=== PATIENT | male | born 1955 | race Caucasian/White ===

== ENCOUNTER 2019-03-10 00:38 | Emergency (ER) | payer OTHER ==
[~2019-03-10] VITALS: Ht 182.9 cm; Wt 102.1 kg
[~2019-03-10 00:38] MED LIST: LISINOPRIL10 MG PO; NAPROSYN375 MG PO; NOHOMEMEDICATIONS; NORCO 5-325 TA1 EACH PO; VICODIN 5-5001 EACH PO
[2019-03-10 01:17] LABS: ABSOLUTE BASOPHILS 0.1 thou/uL (0.0-0.2); ABSOLUTE EOSINOPHILS 0.4 thou/uL (0.0-0.7); ABSOLUTE LYMPHOCYTES 3.1 thou/uL (0.8-5.3); ABSOLUTE MONOCYTES 0.9 thou/uL (0.0-1.2); ABSOLUTE NEUTROPHILS 10.5 thou/uL (1.6-8.1); BASOPHILS 0.8 %; EOSINOPHILS 2.4 %; HEMATOCRIT 45.9 % (42.0-52.0); HEMOGLOBIN 15.8 gm/dL (14.0-18.0); MCH 34.7 pg (26.0-34.0); MCHC 34.4 g/dL (28.0-37.0); MCV 100.6 fL (80.0-100.0); MONOCYTES 5.9 %; MPV 8.8 fl. (7.2-11.1); NUCLEATED RBCS 0 /100WBC; PLATELET COUNT* 256 thou/uL (150-400); POLYS 69.9 %; RBC 4.56 mil/uL (4.50-6.00); RDW-CV 13.2 % (10.5-14.5)
[2019-03-10 01:25] LABS: CALCIUM 8.9 mg/dL (8.5-10.1); CREATININE 1.3 mg/dL (0.6-1.3); POTASSIUM 3.2 mmol/L (3.5-5.1)
[2019-03-10 01:29] LABS: ALBUMIN 3.8 g/dL (3.4-5.0); TOTAL BILIRUBIN 0.2 mg/dL (<0.1-1.0); TOTAL PROTEIN 7.8 g/dL (6.4-8.2)
[2019-03-10 02:19] LABS: URINE BILIRUBIN NEGATIVE (Negative); URINE BLOOD NEGATIVE (Negative); URINE CLARITY CLEAR; URINE COLOR YELLOW; URINE GLUCOSE-RANDOM NEGATIVE (Negative); URINE KETONES NEGATIVE (Negative); URINE LEUKOCYTES-REFLEX NEGATIVE (Negative); URINE NITRITE-REFLEX NEGATIVE (Negative); URINE PROTEIN NEGATIVE (Negative); URINE SPECIFIC GRAVITY >= 1.030 (1.005-1.030); URINE UROBILINOGEN 0.2 E.U./dl (0.2-1.0)
[2019-03-10 04:25] VITALS: BP 126/76
--- NOTE | 2019-03-10 14:09 | EKG ---
[place] [address] ELECTROCARDIOGRAM REPORT Name: SHAKIR BISHOP JAN [id number] Admission: 03/10/19 Attend Phys: Discharge: 03/10/19 Date of : 59 Report #: [id number] THIS REPORT FOR: //name// [facility] ED Test Date: 2019-03-10 Test Time: 00:48:17 Pat Name: SHAKIR BISHOP Department: Room: Gender: M Relationship Mgr: [place] : 1955 Requested By: Aggie Everett Order Number: [id number] Reading MD: Kan Suarez Measurements Intervals [place] Rate: 66 P: 53 NC: 185 QRS: -13 QRSD: 102 T: 67 QT: 455 QTc: 477 Interpretive Statements Sinus rhythm Borderline low voltage, extremity leads poor r wave progression Compared to ECG 09/10/2011 12:56:28 Sinus bradycardia no longer present Electronically Signed On 03-10-2019 14:08:54 [employer] by Kan Suarez [email or web address] <ELECTRONICALLY SIGNED> By: Kan Suarez MD, [facility] 03/10/19 1408 0048 004 Kan Suarez MD, FACC /EPI
== END 2019-03-10 04:25 | disposition home or self-care (01) ==
LOC: M.ERS 00:38
PROVIDERS: Emergency Medicine
DX: R10.33 Periumbilical pain (principal); R10.13 Epigastric pain; R10.84 Generalized abdominal pain; I10 Essential (primary) hypertension; F17.200 Nicotine dependence, unspecified, uncomplicated